=== PATIENT | male | born 2000 | race Caucasian/White ===

== ENCOUNTER 2022-07-12 23:55 | Emergency (ER) | payer MEDICAID, OTHER ==
[~2022-07-12] VITALS: Ht 190.5 cm; Wt 95.4 kg
[2022-07-12 23:58] VITALS: BP 149/83
[2022-07-13] MEDS ORDERED: TETanus/Pertussis (Acell)/Diphther VAC/PF (Tdap-Adult) 0.5ml syringe IMVAC ONE (00:50)
[2022-07-13] MEDS ORDERED: amox tr/potassium clavulanate 875/125mg TAB PO ONE (00:50)
== END 2022-07-13 01:11 | disposition home or self-care (01) ==
LOC: ER 23:55
DX: S81.051A Open bite, right knee, initial encounter (principal); W54.0XXA Bitten by dog, initial encounter; Y93.89 Activity, other specified; Y92.89 Other specified places as the place of occurrence of the external cause; Y99.8 Other external cause status
CPT/HCPCS: 90471; 90715; 99283